=== PATIENT | female | born 1950 | race Caucasian/White ===

== ENCOUNTER 2023-04-18 12:58 | Emergency (ER) | payer MEDICARE, OTHER, SELFPAY ==
[2023-04-18 13:07] VITALS: BP 145/90
[2023-04-18 14:42] VITALS: BP 145/74
--- NOTE | 2023-04-18 15:01 | ED.GENMED ---
History of Present Illness
General
Chief Complaint: Bowel Problem
Source: patient and spouse
Exam Limitations: none
Time Seen by Provider: 04/18/23 14:22
Nursing documentation reviewed up to this point in time: agreed with
Travel History
Have you had any contact with someone who has COVID-19?: No
Do you have any symptoms of coronavirus? Fever > 100 degrees, chills, cough, shortness of breath, sore throat, loss of taste or smell, muscle aches, or headache?: No
History of Present Illness
History of Present Illness:
73-year-old female presents emergency department complaining of constipation for the past 3 weeks. She has had no relief with [id number] medications and prescription medications. She reports a distended abdomen and back pain due to pressure.
Past History
Past History
ED Past Medical History: HTN, Hypercholesterolemia, Hypothyroidism, Psychiatric (Bipolar disorder, Anorexia, PTSD) and Other (2 'crushed vertebrae', Migraines,)
ED Past Surgical History: Appendectomy, Gynecological (tubal ligation) and Other (Right Lumpectomy)
Patient has exhibited threatening behavior?: No
PSI?: No
Social History
Tobacco: Former smoker
Alcohol: None
Drug: None
Personal:
Living: with family
Review of Systems
Review of Systems
Allergies reviewed?: Yes
Constitutional: Reports no symptoms
EENT: Reports no symptoms
Respiratory: Reports no symptoms
Cardiac: Reports no symptoms
ABD/GI: Reports constipated; Denies vomiting
: Reports no symptoms
Musculoskeletal: Reports no symptoms
Skin: Reports no symptoms
Neurological: Reports no symptoms
Endocrine: Reports no symptoms
Hematologic/Lymphatic: Reports no symptoms
Psychiatric: Reports no symptoms
Phy Exam
Physical Exam
Physical Exam:
Physical Exam
General: no apparent distress, not acutely ill
Neck: supple. no meningeal signs. normal posterior pharynx
Heart: s1/s2 regular rate and rhythm, no murmur. equal radial
pulses.
HEENT: Pupils equal round reactive to light, EOMI
Lungs: no acute respiratory distress. clear bilaterally
Abdomen: normal bowel sounds. not tender. no CVAT, rectal exam, hard stool, no impaction
Neuro: alert and oriented. no focal neurological deficits cranial nerves II through XII intact
Skin: no rash
Psychiatric: well kept. interactive and cooperative
Extremities: no edema. no calf tenderness. negative homans. good distal pulses
Course
Orders/Labs/Results
Orders:
Orders
04/18/23 14:55
Magnesium Citrate [Citroma] 300 ml PO ONCE ONE
04/18/23 15:03
Obstruct Series W/PA Chest [CR Obstruct Series W/pa Chest] Urgent
Comment:
Reason For Exam: constipation, abdominal distension
Vital Signs
Initial and Last Documented VS:
Initial Vital Signs
Temp Pulse Resp BP Pulse Ox
97.8 F 93 18 145/90 99
04/18/23 13:07 04/18/23 13:07 04/18/23 13:07 04/18/23 13:07 04/18/23 13:07
Last Documented Vital Signs
Temp Pulse Resp BP Pulse Ox
97.8 F 77 16 145/74 100
04/18/23 13:07 04/18/23 14:42 04/18/23 14:42 04/18/23 14:42 04/18/23 14:42
MDM/Problems Addressed
Differential Diagnosis Includes:
Bowel obstruction, constipation, stool impaction
MDM/Problems Addressed:
73-year-old female with constipation. Do not suspect bowel obstruction. Treat with magnesium citrate.
*Radiology
Radiology exam reviewed: preliminary read by ED provider (Obstruction series shows constipation, no bowel obstruction or free air)
*Pulse Oximetry
Patient hypoxic: no
*EKG
Interpreted by ED Provider?: NA
*Nanotechnology Engineering Technologist Interpretation
Rate: Nanotechnology Engineering Technologist- N/A
*Critical Care Note
Total Time (30-74mins, 75-104mins- exclusive of procedures): Not Applicable
Patient Management
Social determinants of health affecting care: Living situation
Escalation/DeEscalation of care consider admission/obs:
Admit not indicated
ED Attending Note
-
Portions of this chart may have been created with voice recognition software.� Occasional wrong word or��sound alike� substitutions may have occurred due to the inherent limitations of voice recognition software.
Discharge Plan
Departure
Patient Disposition: Home (Routine Discharge)
Date of Disposition: 04/18/23
Time of Disposition: 15:55
Patient with high blood pressure during this ER visit?: Yes
Condition: Good
Discharge Problem:
Constipation
Instructions: Constipation, Adult (DC), BLOOD PRESSURE
Prescriptions:
No Action
venlafaxine 75 MG capsule,extended release 24hr
75 mg PO DAILY
clonazepam 1 MG tablet
2 mg PO HS
clonazepam 1 MG tablet
1 mg PO .AM
mirtazapine 30 MG tablet
30 mg PO HS
divalproex 500 MG tablet extended release 24 hr
500 mg PO .AM
hydrochlorothiazide 25 MG tablet
25 mg PO DAILY
ramipril 10 MG capsule
15 mg PO DAILY
levothyroxine 112 MCG tablet
88 mcg PO DAILY
bupropion HCl 150 MG tablet extended release 24 hr
300 mg PO DAILY
olanzapine [Zyprexa] 2.5 MG tablet
10 mg PO HS
potassium chloride [Klor-Con M20] 20 MEQ tablet,ER particles/crystals
20 meq PO BID
topiramate [Topamax] 100 MG tablet
200 mg PO HS
Fiber Laxative
625 mg PO BID
docusate sodium [Colace] 100 MG capsule
100 mg PO BID Qty: 20 0RF
amlodipine 5 MG tablet
5 mg PO DAILY
propranolol 10 MG tablet
5 mg PO HS
divalproex 500 MG tablet extended release 24 hr
1,000 mg PO HS
hydroxyzine pamoate [Vistaril] 25 MG capsule
25 mg PO HS
hydrocodone-acetaminophen [Vicodin] 1 EACH tablet
1 ea PO TIDPRN PRN (Reason: as directed)
Referrals:
Domo Jimenez I., [Family Provider] -
Nusrat Vera MD [Active] - Call in 1-3 days for appt
Interventions
Interventions:
*Risk Screen - Suicide Last Done: 04/18/23 13:10
*General Assessment Last Done: 04/18/23 13:10
*Neglect/Abuse Screening Last Done: 04/18/23 13:10
ED- Fall Risk Assessment Last Done: 04/18/23 14:34
*ED COVID-19 Vaccine History Last Done: 04/18/23 14:33
SN-Egxymc-Eaogaqhfff Assessment Last Done: 04/18/23 14:50
[2023-04-18] MEDS: CITROMA 300 ML PO (15:05)
== END 2023-04-18 16:22 | disposition home or self-care (01) ==
LOC: EMR 12:58
PROVIDERS: EMERGENCY PHYSICIAN Emergency Medicine; FAMILY PHYSICIAN Internal Medicine
DX: K59.00 Constipation, unspecified (principal); I10 Essential (primary) hypertension; Z87.891 Personal history of nicotine dependence
CPT/HCPCS: 99283; 74022

== ENCOUNTER → 2023-11-24 13:26 | Outpatient (REF) | payer MEDICARE, OTHER, SELFPAY | LOC: RAD 13:26 | PROVIDERS: ATTENDING PHYSICIAN Registered Nurse; FAMILY PHYSICIAN Internal Medicine | DX: I87.2 Venous insufficiency (chronic) (peripheral) (principal); I70.203 Unspecified atherosclerosis of native arteries of extremities, bilateral legs | CPT/HCPCS: 93922; 93970 ==

== ENCOUNTER → 2023-12-19 15:13 | Outpatient (REF) | payer MEDICARE, OTHER, SELFPAY | LOC: RAD 15:13 | PROVIDERS: ATTENDING PHYSICIAN Internal Medicine Endocrinology, Diabetes & Metabolism; FAMILY PHYSICIAN Internal Medicine | DX: E04.2 Nontoxic multinodular goiter (principal) | CPT/HCPCS: 76536 ==

== ENCOUNTER 2024-04-15 11:34 | Emergency (ER) | payer MEDICARE, OTHER, SELFPAY ==
[2024-04-15 11:39] VITALS: BP 171/88
--- NOTE | 2024-04-15 11:45 | EDRN ---
Pt is awaiting results of xray at this time.
--- NOTE | 2024-04-15 12:07 | ED.GENMED ---
History of Present Illness
General
Chief Complaint: Psychiatric Problem
Source: patient and spouse
Exam Limitations: none
Time Seen by Provider: 04/15/24 11:39
Nursing documentation reviewed up to this point in time: agreed with
History of Present Illness
History of Present Illness:
Patient with history of bipolar disorder, presents to ED secondary to 2-week history of fluctuating mood at home, associated with self harming behavior over the past 2 days. Patient has superficial cuts to both of her thighs. Denies any other
injuries. Patient also has had thoughts about overdosing on her pills. Denies homicidal ideation. Denies recent illness. Denies fever or chills. Denies loss of appetite. However, over the past 1 month, patient has had difficult time sleeping,
for which she has spoken with her psychiatrist and has had her medications adjusted, without improvement symptoms.
Past History
Past History
ED Past Medical History: HTN, Hypercholesterolemia, Hypothyroidism, Psychiatric (Bipolar disorder, Anorexia, PTSD) and Other (2 'crushed vertebrae', Migraines,)
ED Past Surgical History: Appendectomy, Gynecological (tubal ligation) and Other (Right Lumpectomy)
Patient has exhibited threatening behavior?: No
PSI?: No
Social History
Tobacco: Former smoker
Alcohol: None
Drug: None
Personal:
Living: with family
Review of Systems
Review of Systems
Allergies reviewed?: Yes
All Other Systems: ROS reviewed and negative except as documented in HPI and ROS
Constitutional: Reports no symptoms; Denies fever
Respiratory: Reports no symptoms; Denies cough
Cardiac: Reports no symptoms; Denies chest pain
ABD/GI: Reports no symptoms; Denies vomiting or diarrhea
Musculoskeletal: Reports no symptoms
Skin: Reports no symptoms
Neurological: Reports no symptoms
Psychiatric: Reports depression and suicidal
Phy Exam
Physical Exam
Physical Exam:
Physical Exam
General: no apparent distress, not acutely ill. afebrile
Head: nc/at. eomi
Neck: supple. normal range of motion
Heart: s1/s2 regular rate and rhythm, no murmur.
Lungs: no acute respiratory distress. clear bilaterally
Abdomen: normal bowel sounds. not tender.
Neuro: alert and oriented x 3. no focal neurological deficits
Skin: no rash
Psychiatric: well kept. interactive and cooperative
Extremities: no edema. no calf tenderness.
Course
Orders/Labs/Results
Orders:
Orders
04/15/24 11:39
1:1 Observation - Suicide/ Violent Behavior As Directed
04/15/24 12:01
Crisis Consult Urgent
Reason for Consult: depression/suicidal ideation
04/15/24 12:55
Electrocardiogram (*1) Urgent
Reason for Study: QTc Monitoring
EKG- Treatment ONCE
04/15/24 13:21
Acetaminophen Urgent
Alcohol Urgent
Complete Blood Count/No Diff Urgent
Comprehensive Metabolic Panel Urgent
Fentanyl, Urine Urgent
Salicylate Urgent
Urine Drug Abuse Screen Urgent
Date Specimen was Collected: 04/15/24
Time Specimen was Collected: 13:09
Abnormal Lab Results
04/15/24
13:21
MCHC 32.4 L g/dL
(33.0-37.0)
BUN 38 H mg/dl
(7-17)
Glucose 69 L mg/dl
(70-99)
Salicylates < 1.0 L mg/dl
(2.0-20.0)
Ur Oxycodone Screen Positive H
(Negative)
Acetaminophen < 10 L ug/ml
(10-30)
U Benzodiazepines Scrn Positive H
(Negative)
04/15/24 13:21
04/15/24 13:21
Vital Signs
Initial and Last Documented VS:
Initial Vital Signs
Temp Pulse Resp BP Pulse Ox
98.1 F 84 20 171/88 99
04/15/24 11:39 04/15/24 11:39 04/15/24 11:39 04/15/24 11:39 04/15/24 11:39
Last Documented Vital Signs
Temp Pulse Resp BP Pulse Ox
98.1 F 89 16 152/93 100
04/15/24 11:39 04/15/24 14:20 04/15/24 14:20 04/15/24 14:20 04/15/24 14:20
MDM/Problems Addressed
MDM/Problems Addressed:
Pt evaluated by transplant worker - will transfer to in-patient psychiatric facility for further evaluation and treatment. Will obtain blood work, UDS, and EKG for medical evaluation.
*EKG
Interpreted by ED Provider?: Yes
EKG Intrepretation Date: 04/15/24
Heart Rate: 74
Rate: normal
Rhythm: sinus
[place]: normal axis
*Critical Care Note
Total Time (30-74mins, 75-104mins- exclusive of procedures): Not Applicable
ED Attending Note
-
Portions of this chart may have been created with voice recognition software.� Occasional wrong word or��sound alike� substitutions may have occurred due to the inherent limitations of voice recognition software.
Discharge Plan
Departure
Patient Disposition: Psych Facility
Date of Disposition: 04/15/24
Time of Disposition: 12:59
Patient Status:: 201
Discharge Problem:
Depression, Suicidal ideations
Prescriptions:
No Action
venlafaxine 75 MG capsule,extended release 24hr
75 mg PO DAILY
clonazepam 1 MG tablet
2 mg PO HS
clonazepam 1 MG tablet
1 mg PO .AM
mirtazapine 30 MG tablet
30 mg PO HS
divalproex 500 MG tablet extended release 24 hr
500 mg PO .AM
hydrochlorothiazide 25 MG tablet
25 mg PO DAILY
ramipril 10 MG capsule
15 mg PO DAILY
levothyroxine 112 MCG tablet
88 mcg PO DAILY
bupropion HCl 150 MG tablet extended release 24 hr
300 mg PO DAILY
olanzapine [Zyprexa] 2.5 MG tablet
10 mg PO HS
potassium chloride [Klor-Con M20] 20 MEQ tablet,ER particles/crystals
20 meq PO BID
topiramate [Topamax] 100 MG tablet
200 mg PO HS
Fiber Laxative
625 mg PO BID
docusate sodium [Colace] 100 MG capsule
100 mg PO BID Qty: 20 0RF
amlodipine 5 MG tablet
5 mg PO DAILY
propranolol 10 MG tablet
5 mg PO HS
divalproex 500 MG tablet extended release 24 hr
1,000 mg PO HS
hydroxyzine pamoate [Vistaril] 25 MG capsule
25 mg PO HS
hydrocodone-acetaminophen [Vicodin] 1 EACH tablet
1 ea PO TIDPRN PRN (Reason: as directed)
Interventions
Interventions:
*Risk Screen - Suicide Last Done: 04/15/24 11:37
*General Assessment Last Done: 04/15/24 11:39
*Neglect/Abuse Screening Last Done: 04/15/24 11:39
ED- Fall Risk Assessment Last Done: 04/15/24 13:29
*ED COVID-19 Vaccine History Last Done: 04/15/24 14:00
*Nursing Disposition Last Done: 04/15/24 17:40
ED-Psychological Assessment Last Done: 04/15/24 14:00
Discharge Date and Time
Discharge Date/Time: 04/15/24 17:40
Print Language: MONGOLIAN
--- NOTE | 2024-04-15 12:23 | EDRN ---
Crisis aids social worker in room w/pt at this time.
--- NOTE | 2024-04-15 13:26 | EDRN ---
Blood and urine specs sent to lab at this time.
[2024-04-15 13:36] LABS: Hematocrit 42.9 % (37.0-47.0); Hemoglobin 13.9 g/dL (12.0-16.0); Mean Corp Hgb Conc. 32.4 g/dL (33.0-37.0); Mean Corpuscular Volume 95.5 fL (81.0-99.0); Platelet Count 179 10^3/uL (130-400); Red Blood Cell Count 4.49 10^6/uL (4.20-5.40); Red Cell Dist. Width 13.6 % (11.5-14.5)
[2024-04-15 13:58] LABS: ALT (SGPT) 19 U/L (0-35); AST (SGOT) 27 U/L (14-36); Acetaminophen < 10 ug/ml (10-30); Alkaline Phosphatase 73 U/L (38-126); Blood Urea Nitrogen 38 mg/dl (7-17); Calcium 9.5 mg/dl (8.4-10.2); Carbon Dioxide 29 mmol/L (22-30); Chloride 105 mmol/L (98-107); Glucose 69 mg/dl (70-99); Salicylate < 1.0 mg/dl (2.0-20.0); Sodium 143 mmol/L (135-145); Total Bilirubin 0.4 mg/dl (0.2-1.3); Total Protein 7.3 g/dl (6.3-8.2); eGFR > 60.00
[2024-04-15 14:00] LABS: Alcohol None Detected
[2024-04-15 14:14] LABS: Amphetamines Negative (Negative); Barbiturates Negative (Negative); Benzodiazepines Positive (Negative); Buprenorphine Negative (Negative); Cocaine Negative (Negative); Marijuana Negative (Negative); Methadone Negative (Negative); Methamphetamines Negative (Negative); Opiates Negative (Negative); Phencyclidine Negative (Negative); Tricyclic Antidepressants Negative (Negative)
[2024-04-15 14:20] VITALS: BP 152/93; BMI 18.0
[2024-04-15 14:33] LABS: Fentanyl, Urine Negative (Negative)
--- NOTE | 2024-04-15 15:45 | EDRN ---
Supper tray ordered by security in room at this time.
== END 2024-04-15 17:40 ==
LOC: EMR 11:34
PROVIDERS: EMERGENCY PHYSICIAN Emergency Medicine; FAMILY PHYSICIAN Internal Medicine
DX: F31.9 Bipolar disorder, unspecified (principal); R45.851 Suicidal ideations; Z91.52 Personal history of nonsuicidal self-harm; I10 Essential (primary) hypertension; E78.00 Pure hypercholesterolemia, unspecified; E03.9 Hypothyroidism, unspecified; F43.10 Post-traumatic stress disorder, unspecified; R63.0 Anorexia; Z87.891 Personal history of nicotine dependence
CPT/HCPCS: 99283; 80053; 80143; 80179; 80306; 80307; 82077; 85027; 93005

== ENCOUNTER → 2024-08-22 12:52 | Outpatient (REF) | payer MEDICARE, OTHER, SELFPAY | LOC: WDC 12:52 | PROVIDERS: ATTENDING PHYSICIAN Nurse Practitioner Family | DX: Z12.31 Encounter for screening mammogram for malignant neoplasm of breast (principal) | CPT/HCPCS: 77063; 77067 ==

== ENCOUNTER 2024-12-11 06:23 | Day surgery (SDC) | payer MEDICARE, OTHER, SELFPAY | END 2024-12-11 15:50 | disposition home or self-care (01) | LOC: GI 06:23 | PROVIDERS: ATTENDING PHYSICIAN Internal Medicine Gastroenterology | DX: Z12.11 Encounter for screening for malignant neoplasm of colon (principal); K63.89 Other specified diseases of intestine; Q43.8 Other specified congenital malformations of intestine; R13.10 Dysphagia, unspecified; K31.7 Polyp of stomach and duodenum; K31.89 Other diseases of stomach and duodenum; D12.3 Benign neoplasm of transverse colon | CPT/HCPCS: 45380; 43239; 88305; 88342 ==

== ENCOUNTER → 2025-02-25 12:17 | Outpatient (REF) | payer MEDICARE, OTHER, SELFPAY | LOC: RAD 12:17 | PROVIDERS: ATTENDING PHYSICIAN Family Medicine | DX: Z78.0 Asymptomatic menopausal state (principal) | CPT/HCPCS: 77080 ==